=== PATIENT | female | born 1945 | race Caucasian/White ===

== ENCOUNTER 2018-03-26 13:25 | Observation (INO) | payer SELFPAY ==
[~2018-03-26] VITALS: Ht 165.1 cm; Wt 77.0 kg
[2018-03-26 13:51] VITALS: BP 141/103; PULSE 92; RESP 14; TEMP 98.3; O2SAT 96
[2018-03-26] MEDS ORDERED: ZOCO20TA PO (14:09)
[2018-03-26] MEDS ORDERED: LEVO.05 PO (14:09)
[2018-03-26] MEDS ORDERED: LISI10TA3 PO (14:09)
[2018-03-26] MEDS ORDERED: METF1000 PO (14:09)
[2018-03-26] MEDS ORDERED: ASPI-516 PO (14:11)
[2018-03-26] MEDS ORDERED: SODIUM CHLORIDE 0.9% FLUSH 10 ML FLUSH IVF PRN (14:15)
--- NOTE | 2018-03-26 14:38 | RADRPT ---
EXAM DATE: 03/26/2018 2:35 PM EDT AGE/SEX: 73 years / Female INDICATIONS: Chest pain. CLINICAL DATA: This is the patient's initial encounter. Patient reports that signs and symptoms have been present for 4 - 6 days and indicates a pain score of 5/10. MEDICAL/SURGICAL HISTORY: None. None. COMPARISON: No prior Erin exams available for comparison. FINDINGS: A single AP view of the chest demonstrates the lungs to be symmetrically aerated without evidence of mass, infiltrate or effusion. The cardiomediastinal contours are unremarkable. Osseous structures a re intact. CONCLUSION: No acute cardiopulmonary disease. Electronically signed by: Doug Orr MD 03/26/2018 2:36 PM EDT
--- NOTE | 2018-03-26 15:05 | PD ---
HPI Chief Complaint: Chest Pain Time Seen by Provider: 14:06 Travel History International Travel<30 days: No Contact w/Intl Traveler<30days: No Traveled to known affect area: No History of Present Illness HPI The patient was seen and examined in the presence of the nurse. This is a Faroese speaker and translation was used. This patient complains of chest pain. Location is center sternum. Feels like a pressure and aching. Duration 3 days. No alleviating factors. She is currently pain-free. No exacerbating factors. [place] Symptom severity is moderate. PFSH Past Medical History Cardiovascular Problems: Yes High Cholesterol: Yes Diabetes: Yes Patient Takes Glucophage: Yes Diminished Hearing: No Hypertension: Yes Medical other: Yes Thyroid Disease: Yes Tetanus Vaccination: > 5 Years Influenza Vaccination: Yes ?: Not Menopausal: Yes : 4 Para: 4 Past Surgical History Gynecologic Surgery: Yes Hysterectomy: Yes Social History Alcohol Use: No Tobacco Use: No Substance Use: No Allergies-Medications (Allergen,Severity, Reaction): Coded Allergies: No Known Allergies (Unverified , 03/26/18) Reported Meds & Prescriptions Reported Meds & Active Scripts Active Reported Aspirin 81 Mg Chew 81 Mg PO DAILY Synthroid (Levothyroxine Sodium) 50 Mcg Tab 50 Mcg PO DAILY Metformin (Metformin HCl) 1,000 Mg Tab 1,000 Mg PO BIDPC Zocor (Simvastatin) 20 Mg Tab 20 Mg PO DAILY@1600 Lisinopril 10 Mg Tab 10 Mg PO DAILY Review of Systems General / Constitutional: No: Fever Eyes: No: Visual changes HENT: No: Headaches Cardiovascular: Positive: Chest Pain or Discomfort Respiratory: No: Shortness of Breath Gastrointestinal: No: Abdominal Pain Genitourinary: No: Dysuria Musculoskeletal: No: Pain Skin: No Rash Neurologic: No: Weakness Psychiatric: No: Depression Endocrine: No: Polydipsia Hematologic/Lymphatic: No: Easy Bruising Physical Exam Narrative GENERAL: Well-nourished, well-developed patient in no apparent distress. SKIN: Focused skin assessment reveals no rash and nodules. Skin is Warm and dry. HEAD: Atraumatic. Normocephalic. EYES: Pupils equal and round. No scleral icterus. No injection or drainage. ENT: No nasal bleeding or discharge. Mucous membranes pink and moist. NECK: Trachea midline. No JVD. CARDIOVASCULAR: Regular rate and rhythm. No murmur appreciated. Periodic ectopic beats are noted RESPIRATORY: No accessory muscle use. Clear to auscultation. Breath sounds equal bilaterally. GASTROINTESTINAL: Abdomen soft, non-tender, nondistended. Hepatic and splenic margins not palpable. MUSCULOSKELETAL: No obvious deformities. No clubbing. No cyanosis. No edema. NEUROLOGICAL: Awake and alert. No obvious cranial nerve deficits. Motor grossly within normal limits. Normal speech. PSYCHIATRIC: Appropriate mood and affect; insight and judgment normal. Data Data Last Documented VS Vital Signs Date Time Temp Pulse Resp B/P (MAP) Pulse Ox O2 Delivery O2 Flow Rate FiO2 03/26/18 14:21 Room Air 03/26/18 14:12 96 16 98 03/26/18 13:51 98.3 141/103 (116) Orders Orders Electrocardiogram (03/26/18 14:15) Basic Metabolic Panel (Bmp) (03/26/18 14:15) Ckmb (Isoenzyme) Profile (03/26/18 14:15) Complete Blood Count With Diff (03/26/18 14:15) Magnesium (Mg) (03/26/18 14:15) Prothrombin Time / Inr (Pt) (03/26/18 14:15) Act Partial Throm Time (Ptt) (03/26/18 14:15) Troponin I (03/26/18 14:15) Chest, Single Ap (03/26/18 14:15) Ecg Monitoring (03/26/18 14:15) Iv Access Insert/Monitor (03/26/18 14:15) Oximetry (03/26/18 14:15) Sodium Chloride 0.9% Flush (Ns Flush) (03/26/18 14:15) CKMB (03/26/18 14:13) CKMB% (03/26/18 14:13) Labs Laboratory Tests Test 03/26/18 14:13 White Blood Count 7.1 TH/MM3 Red Blood Count 4.11 MIL/MM3 Hemoglobin 12.8 GM/DL Hematocrit 36.0 % Mean Corpuscular Volume 87.6 FL Mean Corpuscular Hemoglobin 31.0 PG Mean Corpuscular Hemoglobin Concent 35.4 % Red Cell Distribution Width 13.1 % Platelet Count 222 TH/MM3 Mean Platelet Volume 10.2 FL Neutrophils (%) (Auto) 44.4 % Lymphocytes (%) (Auto) 47.6 % Monocytes (%) (Auto) 6.4 % Eosinophils (%) (Auto) 1.1 % Basophils (%) (Auto) 0.5 % Neutrophils # (Auto) 3.1 TH/MM3 Lymphocytes # (Auto) 3.4 TH/MM3 Monocytes # (Auto) 0.5 TH/MM3 Eosinophils # (Auto) 0.1 TH/MM3 Basophils # (Auto) 0.0 TH/MM3 CBC Comment DIFF FINAL Differential Comment Prothrombin Time 10.3 SEC Prothromb Time International Ratio 1.0 RATIO Activated Partial Thromboplast Time 25.6 SEC Blood Urea Nitrogen 26 MG/DL Creatinine 0.97 MG/DL Random Glucose 184 MG/DL Calcium Level 9.5 MG/DL Magnesium Level 1.8 MG/DL Sodium Level 139 MEQ/L Potassium Level 3.7 MEQ/L Chloride Level 102 MEQ/L Carbon Dioxide Level 26.4 MEQ/L Anion Gap 11 MEQ/L Estimat Glomerular Filtration Rate 57 ML/MIN Total Creatine Kinase 142 U/L Creatine Kinase MB 1.3 NG/ML Troponin I LESS THAN 0.02 NG/ML MDM Medical Decision Making Medical Screen Exam Complete: Yes Emergency Medical Condition: Yes Medical Record Reviewed: Yes Differential Diagnosis Differential diagnosis includes MN, angina, pericarditis, pleurisy, GERD, anxiety. Narrative Course I have reviewed the patient's electronic medical record. IV placed and labs sent She had aspirin prior to arrival I reviewed her EKG which shows sinus rhythm with occasional ectopic beat and left bundle branch block Cardiac enzymes and CBC and metabolic profiles are normal Chest x-ray is normal Patient remained chest pain-free. She has multiple risk factors for coronary artery disease. [place] but I have no details or records to go by. She will be a 23 hour observation in the chest pain center in order to rule out cardiac cause of her symptoms. Diagnosis Primary Impression: Chest pain Qualified Codes: R07.9 - Chest pain, unspecified Additional Impressions: Hyperlipidemia Qualified Codes: E78.5 - Hyperlipidemia, unspecified Hypertension Qualified Codes: I10 - Essential (primary) hypertension Admitting Information Admitting Physician Requests: Observation Earnest Bhatt MD March 26, 2018 15:05
[2018-03-26 15:09] LABS: AUTOMATED NEUTROPHIL # 3.1 TH/MM3 (1.8-7.7); BASOPHIL % 0.5 % (0.0-2.0); EOSINOPHIL # 0.1 TH/MM3 (0-0.4); EOSINOPHIL % 1.1 % (0.0-4.0); HEMOGLOBIN 12.8 GM/DL (11.6-15.3); LYMPH % 47.6 % (9.0-44.0); LYMPHOCYTE # 3.4 TH/MM3 (1.0-4.8); MEAN CELL VOLUME 87.6 FL (80.0-100.0); MEAN CORPUSCULAR HGB CONC 35.4 % (32.0-36.0); MEAN PLATELET VOLUME 10.2 FL (7.0-11.0); MONO % 6.4 % (0.0-8.0); MONOCYTE # 0.5 TH/MM3 (0-0.9); NEUT % 44.4 % (16.0-70.0); PLATELET COUNT 222 TH/MM3 (150-450); RED BLOOD COUNT 4.11 MIL/MM3 (4.00-5.30); RED CELL DISTRIBUTION WIDTH 13.1 % (11.6-17.2); WHITE BLOOD COUNT 7.1 TH/MM3 (4.0-11.0)
[2018-03-26 15:19] LABS: BICARBONATE 26.4 MEQ/L (21.0-32.0); BLOOD UREA NITROGEN 26 MG/DL (7-18); CALCIUM 9.5 MG/DL (8.5-10.1); CHLORIDE 102 MEQ/L (98-107); CREATININE 0.97 MG/DL (0.50-1.00); GLOMERULAR FILTRATION RATE 57 ML/MIN (>89); GLUCOSE,RANDOM 184 MG/DL (74-106); MAGNESIUM 1.8 MG/DL (1.5-2.5); SODIUM (NA) 139 MEQ/L (136-145)
[2018-03-26 15:24] LABS: TROPONIN I LESS THAN 0.02 NG/ML (0.02-0.05)
[2018-03-26 15:43] LABS: PROTHROMBIN TIME - PATIENT 10.3 SEC (9.8-11.6)
[2018-03-26] MEDS ORDERED: SODIUM CHLORIDE 0.9% FLUSH 10 ML FLUSH IV FLUSH PRN (18:30)
[2018-03-26 18:41] VITALS: BP 130/75; PULSE 100; RESP 20; O2SAT 96
[2018-03-26 19:02] VITALS: BP 130/75
[2018-03-26 19:43] LABS: TROPONIN I LESS THAN 0.02 NG/ML (0.02-0.05)
[2018-03-26 20:46] VITALS: BP 130/81; PULSE 79; RESP 16; TEMP 98.2; O2SAT 96
[2018-03-26] MEDS: SODIUM CHLORIDE 0.9% FLUSH 10 ML FLUSH IV FLUSH SCH (22:03)
[2018-03-26 22:37] LABS: TROPONIN I LESS THAN 0.02 NG/ML (0.02-0.05)
[2018-03-26 23:59] VITALS: BP 156/70; PULSE 69; RESP 16; TEMP 98.2; O2SAT 98
[2018-03-27] VITALS (9 sets, daily range): BP systolic 114–195; BP diastolic 64–80; PULSE 65–93; RESP 16–18; TEMP 97.5–97.9; O2SAT 96–98
[2018-03-27] MEDS ORDERED: ONDANSETRON ODT 4 MG TAB PO PRN (07:30)
[2018-03-27] MEDS ORDERED: NITROGLYCERIN 0.4 MG SL 25 TABS/BTL SL PRN (07:30)
[2018-03-27] MEDS ORDERED: ACETAMINOPHEN 500 MG CPLT PO PRN (07:30)
[2018-03-27] MEDS ORDERED: ASPIRIN 325 MG TAB PO SCH (09:00)
[2018-03-27] MEDS ORDERED: LISINOPRIL 10 MG TAB PO SCH (09:00)
[2018-03-27] MEDS: SODIUM CHLORIDE 0.9% FLUSH 10 ML FLUSH IV FLUSH SCH (09:08)
--- NOTE | 2018-03-27 09:27 | HHI.HP ---
HPI Primary Care Physician No Primary Care Physician Chief Complaint Chest pain History of Present Illness 73-year-old female with history of hypertension, hyperlipidemia, type 2 diabetes presents emergency room for further evaluation of nonexertional chest pain. Onset 11 AM. Location substernal. Characterized as a quick, onset of squeezing. No radiation. Severity /10. Duration 1-2 minutes. No associated symptoms of nausea, vomiting, dyspnea, or diaphoresis. No known precipitating or relieving factors. Denies similar pain in the past. Currently chest pain-free. Use of television news producer service utilized. Review of Systems General: No fatigue, weakness, fever, chills, recent illness, or change in appetite. Has been in her general state of health. Recently moved from [place] 3 months ago to live with son here in [facility]. HEENT: No GUTIERREZ, no vision changes, no nasal congestion or drainage, no dysphasia CV: As stated above. No current chest pain or pressure. History of palpitations, denying palpitations during chest pain episode yesterday. RESP: No SOB, cough, wheeze, or recent upper respiratory infections GI: No nausea, vomiting, bowel changes, diarrhea, constipation, pain, distention , melena, or blood in the stool. : No dysuria, urgency, frequency EXT: No lower leg edema, no paraesthesias MS: No discomfort, injury, or change in ROM NEURO: No change in memory, dizziness, difficulty with balance, LOC, motor/ sensory deficits PSYCH: No anxiety, depression, suicidal ideation SKIN: No rashes, no concerning lesions Past Family Social History Allergies: Coded Allergies: No Known Allergies (Unverified , 03/26/18) Past Medical History Hypertension, hyperlipidemia, hypothyroidism, type 2 diabetes, hard of hearing Past Surgical History Hysterectomy Reported Medications Reported Meds & Active Scripts Active Reported Aspirin 81 Mg Chew 81 Mg PO DAILY Synthroid (Levothyroxine Sodium) 50 Mcg Tab 50 Mcg PO DAILY Metformin (Metformin HCl) 1,000 Mg Tab 1,000 Mg PO BIDPC Zocor (Simvastatin) 20 Mg Tab 20 Mg PO DAILY@1600 Lisinopril 10 Mg Tab 10 Mg PO DAILY Active Ordered Medications Current Medications Medications (Trade) Dose Ordered Sig/Beronica Route Start Time Stop Time Status Last Admin (NS Flush) 2 ml UNSCH PRN IV FLUSH 03/26/18 18:30 (NS Flush) 2 ml BID IV FLUSH 03/26/18 21:00 03/27/18 09:08 (Prinivil) 10 mg DAILY PO 03/27/18 09:00 03/27/18 09:08 (Aspirin) 325 mg DAILY PO 03/27/18 09:00 03/27/18 09:08 (Tylenol) 500 mg Q4H PRN PO 03/27/18 07:30 (Nitrostat Sl) 0.4 mg Q5M PRN SL 03/27/18 07:30 (Zofran Odt) 4 mg Q6H PRN PO 03/27/18 07:30 Family History Non-Contributory for early onset cardiovascular disease Social History Known type 2 diabetes, hypertension, hyperlipidemia. No known coronary artery disease. Lifelong non-smoker. Denies any alcohol or illegal drug use. Endorses sedentary lifestyle. Past cardiac testing Nuclear chemical stress test approximately 6 months ago reported to be normal. Testing was completed due to reported palpitations.. Denies ever requiring cardiac catheterization. Physical Exam Vital Signs Vital Signs Date Time Temp Pulse Resp B/P (MAP) Pulse Ox O2 Delivery O2 Flow Rate FiO2 03/27/18 09:04 97.8 71 18 146/72 (96) 97 03/27/18 08:06 77 03/27/18 03:56 97.7 65 16 114/69 (84) 96 03/27/18 03:00 79 03/27/18 00:38 21 03/27/18 00:05 77 03/26/18 23:59 98.2 69 16 156/70 (98) 98 03/26/18 20:46 98.2 79 16 130/81 (97) 96 03/26/18 19:02 100 20 130/75 (93) 98 21 03/26/18 18:41 100 20 130/75 (93) 96 Room Air 03/26/18 14:21 Room Air 03/26/18 14:12 96 16 98 Room Air 03/26/18 13:51 98.3 92 14 141/103 (116) 96 Physical Exam GENERAL: Alert WN, WD, NAD, pleasant, elderly female HEAD: NC, AT EYES: Sclera clear, conjunctiva without injection, pupils equal and round ENT: Mucous membranes pink and moist, no nasal discharge or bleeding NECK: Supple, no masses, trachea midline CV: RRR, 1/6 systolic murmur, no rub, gallop, or JVD, S1-S2 no S3-S4. No carotid or femoral bruits. Left anterior chest discomfort reproduced with palpation. RESP: Clear lungs throughout bilateral, no crackles, wheeze, rhonchi, symmetrical chest rise, nonlabored, able to speak in full sentences ABD: Soft, NT, ND, no masses, positive bowel tones EXT: Pulses +2x4, no dependent edema MS: Normal tone x4 extremities, nontender, no obvious deformities, full range of motion NEURO: CN II through CN XII grossly intact, motor strength 5/5 PSYCH: A+O x3, Estonian-speaking, pleasant affect, appropriate speech, mood and affect, insight and judgment SKIN: Normal turgor, normal texture, no lesions, no rashes, brisk cap refill, even hair distribution Laboratory Laboratory Tests Test 03/26/18 14:13 03/26/18 18:30 03/26/18 21:53 White Blood Count 7.1 Red Blood Count 4.11 Hemoglobin 12.8 Hematocrit 36.0 Mean Corpuscular Volume 87.6 Mean Corpuscular Hemoglobin 31.0 Mean Corpuscular Hemoglobin Concent 35.4 Red Cell Distribution Width 13.1 Platelet Count 222 Mean Platelet Volume 10.2 Neutrophils (%) (Auto) 44.4 Lymphocytes (%) (Auto) 47.6 Monocytes (%) (Auto) 6.4 Eosinophils (%) (Auto) 1.1 Basophils (%) (Auto) 0.5 Neutrophils # (Auto) 3.1 Lymphocytes # (Auto) 3.4 Monocytes # (Auto) 0.5 Eosinophils # (Auto) 0.1 Basophils # (Auto) 0.0 CBC Comment DIFF FINAL Differential Comment Prothrombin Time 10.3 Prothromb Time International Ratio 1.0 Activated Partial Thromboplast Time 25.6 Blood Urea Nitrogen 26 Creatinine 0.97 Random Glucose 184 Calcium Level 9.5 Magnesium Level 1.8 Sodium Level 139 Potassium Level 3.7 Chloride Level 102 Carbon Dioxide Level 26.4 Anion Gap 11 Estimat Glomerular Filtration Rate 57 Total Creatine Kinase 142 129 121 Creatine Kinase MB 1.3 1.2 1.2 Troponin I LESS THAN 0.02 LESS THAN 0.02 LESS THAN 0.02 Result Diagram: 03/26/18 1413 03/26/18 1413 Imaging Last 48 hours Impressions Chest X-Ray 03/26/18 1415 Signed Impressions: CONCLUSION: No acute cardiopulmonary disease. Course EKG NSR, Left bundle branch block Caprini VTE Risk Assessment Caprini VTE Risk Assessment: Mod/High Risk (score >= 2) Caprini Risk Assessment Model Point Value = 1 Point Value = 2 Point Value = 3 Point Value = 5 Age 41-60 Minor surgery BMI > 25 kg/m2 Swollen legs Varicose veins or History of unexplained or recurrent spontaneous Oral contraceptives or hormone replacement Sepsis (< 1 month) Serious lung disease, including pneumonia (< 1 month) Abnormal pulmonary function Acute myocardial infarction Congestive heart failure (< 1 month) History of inflammatory bowel disease Medical patient at bed rest Age 61-74 Arthroscopic surgery Major open surgery (> 45 min) Laparoscopic surgery (> 45 min) Malignancy Confined to bed (> 72 hours) Immobilizing plaster cast Central venous access Age >= 75 History of VTE Family history of VTE Factor V Leiden Prothrombin [id number] Lupus anticoagulant Anticardiolipin antibodies Elevated serum homocysteine Heparin-induced thrombocytopenia Other congenital or acquired thrombophilia Stroke (< 1 month) Elective arthroplasty Hip, pelvis, or leg fracture Acute spinal cord injury (< 1 month) Prophylaxis Regimen Total Risk Factor Score Risk Level Prophylaxis Regimen 0-1 Low Early ambulation 2 Moderate Order ONE of the following: *Sequential Compression Device (SCD) *Heparin 5000 units SQ BID 3-4 Higher Order ONE of the following medications: *Heparin 5000 units SQ TID *Enoxaparin/Lovenox 40 mg SQ daily (WT < 150 kg, CrCl > 30 mL/min) *Enoxaparin/Lovenox 30 mg SQ daily (WT < 150 kg, CrCl > 10-29 mL/min) *Enoxaparin/Lovenox 30 mg SQ BID (WT < 150 kg, CrCl > 30 mL/min) AND/OR *Sequential Compression Device (SCD) 5 or more Highest Order ONE of the following medications: *Heparin 5000 units SQ TID (Preferred with Epidurals) *Enoxaparin/Lovenox 40 mg SQ daily (WT < 150 kg, CrCl > 30 mL/min) *Enoxaparin/Lovenox 30 mg SQ daily (WT < 150 kg, CrCl > 10-29 mL/min) *Enoxaparin/Lovenox 30 mg SQ BID (WT < 150 kg, CrCl > 30 mL/min) AND *Sequential Compression Device (SCD) Assessment and Plan Assessment and Plan #1 Atypical chest pain-admitted to chest pain center. Ruled out 3 sets of EKGs , cardiac enzymes, and monitored on telemetry overnight. Will be seen and evaluated by Dr. Obdulio Ross. Attempt to obtain Lexisca record from [place]. Discussed likelihood of repeating Lexiscan. EKG left bundle branch block with no comparison EKG. Patient and patient's son at bedside agreeable to plan of care and made aware final disposition will be made after valuation by stress test technician. #2 History of hypertension-continue lisinopril #3 History of hyperlipidemia-continue simvastatin #4 History of type II diabetes-hold metformin at this time, resume after n.p.o. status lifted Richa Castro Mar 27, 2018 09:27
--- NOTE | 2018-03-27 13:18 | EKG ---
Date Performed: 03/26/2018 Time Performed: 22:00:01 PTAGE: 73 years EKG: Sinus rhythm WITH OCCASIONAL SUPRAVENTRICULAR PREMATURE COMPLEXES MARKED LEFT AXIS DEVIATION LEFT BUNDLE BRANCH B LOCK ABNORMAL ECG PREVIOUS TRACING : 03/26/2018 18.29 Since previous tracing, no significant change noted DOCTOR: Obdulio Ross Interpretating Date/Time 03/27/2018 13:18:20
--- NOTE | 2018-03-27 13:21 | EKG ---
Date Performed: 03/26/2018 Time Performed: 18:29:06 PTAGE: 73 years EKG: Sinus rhythm WITH OCCASIONAL SUPRAVENTRICULAR PREMATURE COMPLEXES MARKED LEFT AXIS DEVIATION LEFT BUNDLE BRANCH B LOCK ABNORMAL ECG PREVIOUS TRACING : 03/26/2018 14.17 Since previous tracing, no significant change noted DOCTOR: Obdulio Ross Interpretating Date/Time 03/27/2018 13:19:23
--- NOTE | 2018-03-27 13:22 | EKG ---
Date Performed: 03/26/2018 Time Performed: 14:17:42 PTAGE: 73 years EKG: Sinus rhythm WITH OCCASIONAL SUPRAVENTRICULAR PREMATURE COMPLEXES MARKED LEFT AXIS DEVIATION LEFT BUNDLE BRANCH B LOCK ABNORMAL ECG NO PREVIOUS TRACING DOCTOR: Obdulio Ross Interpretating Date/Time 03/27/2018 13:19:54
[2018-03-27] MEDS ORDERED: REGADENOSON INJ 0.4 MG/5 ML SYR ONE (13:33)
--- NOTE | 2018-03-27 14:54 | RADRPT ---
EXAM DATE: 03/27/2018 2:34 PM EDT AGE/SEX: 73 years / Female INDICATIONS:Angina. . Chest pain. CLINICAL DATA: This is the patient's initial encounter. Patient reports that signs and symptoms have been present for 1 day and indicates a pain score of 0/10. MEDICAL/SURGICAL HISTORY: Diabetes mellitus type II. Hypercholesterolemia. Hypertension. Hyst erectomy. COMPARISON: No prior [facility] exams available for comparison. No external comparison. DOSE: 8.5 mCi Tc 99m Myoview at rest 26.2 mCi [id number] at stress 0.4 mg Lexiscan STRESS SYMPTOMS: Dyspnea. EJECTION FRACTION: 48 % TECHNIQUE: The patient underwent pharmacologic stress with infusion of prescribed dose. Continuous ECG tracing was monitored during stress. Gated SPECT imaging was performed after stress and conventi onal SPECT imaging was performed at rest. The examination was performed on a SPECT/CT scanner, both attenuation and non-corrected datasets were reviewed. FINDINGS: Distribution: The maximum perfused segment at stress is in the anterolateral wall. Perfusion Study: The examination demonstrates a mild in severity, fixed perfusion defect involving the anteroseptal wall down near the cardiac apex. No reversible perfusion defect is identified. There is no associated wall motion abnormality in this area. This could suggest an old area of infarct. Gated Study: There is a hypokinetic wall motion segment in the anteroseptal wall. The ejection frac tion is calculated at 48%. RISK CATEGORY: Intermediate (1-3 % Annual Mortality Rate) CONCLUSION: 1. Fixed perfusion defect in the anteroseptal wall with associated wall motion abnormality suggestin g an old area of infarct. 2. The ejection fraction is mildly decreased at 48%. Electronically signed by: Roddy Del Toro MD 03/27/2018 2:53 PM EDT
--- NOTE | 2018-03-27 15:04 | HHI.DCPOC ---
Discharge Care Plan Diagnosis: (1) Atypical chest pain Goals to Promote Your Health * To prevent worsening of your condition and complications * To maintain your health at the optimal level Directions to Meet Your Goals Take your medications as prescribed Follow your dietary instruction Follow activity as directed Keep your appointments as scheduled Take your immunizations and boosters as scheduled If your symptoms worsen call your PCP, if no PCP go to Urgent Care Center or Emergency Room Smoking is Dangerous to Your Health. Avoid second hand smoke Call the 24-hour hour crisis hotline for domestic abuse at Richa Castro Mar 27, 2018 15:04
--- NOTE | 2018-03-28 11:13 | TR ---
Date Performed: 03/27/2018 Time Performed: 13:32:24 DOCTOR: Obdulio Ross DRUG LIST: CLINICAL HISTORY: REASON FOR TEST: REASON FOR ENDING: OBSERVATION: CONCLUSION: COMMENTS: Lexiscan stress test was performed under standard four minute protocol. Radionuclide was injected one minute prior to ending the test. No electrocardiographic abormalities were present t o suggest ischemia. Nuclear imaging and interpretation are pending.
== END 2018-03-27 17:03 | disposition home or self-care (01) ==
LOC: NEPE 13:25 → NEDA 18:17 → NEPFCDU 19:56
DX: R07.89 Other chest pain (principal); I10 Essential (primary) hypertension; E78.5 Hyperlipidemia, unspecified; E03.9 Hypothyroidism, unspecified; E11.9 Type 2 diabetes mellitus without complications; I44.7 Left bundle-branch block, unspecified; Z79.899 Other long term (current) drug therapy; Z79.82 Long term (current) use of aspirin
CPT/HCPCS: 71045; 78452; 80048; 82550; 82552; 83735; 84484; 85025; 85610; 85730; 93005; 93017; 99285; A9502; G0378; J2785

== ENCOUNTER 2018-03-30 10:29 | Emergency (ER) | payer SELFPAY ==
[~2018-03-30 10:29] MED LIST: ASPI-516 PO; LEVO.05 PO; LISI10TA3 PO; METF1000 PO; ZOCO20TA PO
[2018-03-30 11:04] VITALS: BP 131/68; PULSE 85; RESP 16; TEMP 98.7; O2SAT 98
[2018-03-30] MEDS ORDERED: LISI10TA3 PO (11:52)
[2018-03-30] MEDS ORDERED: METF1000 PO (11:52)
[2018-03-30] MEDS ORDERED: SIMV20TA PO (11:52)
[2018-03-30] MEDS ORDERED: LEVO50TA4 PO (11:52)
--- NOTE | 2018-03-30 11:56 | PD ---
HPI Chief Complaint: Medication Refill Request Time Seen by Provider: 11:31 Travel History International Travel<30 days: No Contact w/Intl Traveler<30days: No Traveled to known affect area: No History of Present Illness HPI 73-year-old female presents to the emergency room requesting medication refill. Patient states she has been out of her medications for 4 days, since she got discharged from the chest pain center at [place]. She needs refills of lisinopril, simvastatin, metformin, and levothyroxine. States she moved down here from [place] 2 months ago and does not have a primary care physician in the area. She denies any complaints today other than anxiety about having her medications refilled. Patient is primarily Khmer-speaking and high school history teacher was used throughout history and physical exam. [facility] Past Medical History Cardiovascular Problems: Yes High Cholesterol: Yes Diabetes: Yes Diminished Hearing: No Hypertension: Yes Thyroid Disease: Yes Menopausal: Yes : 4 Para: 4 Past Surgical History Gynecologic Surgery: Yes Hysterectomy: Yes Social History Alcohol Use: No Tobacco Use: No Substance Use: No Allergies-Medications (Allergen,Severity, Reaction): Coded Allergies: No Known Allergies (Unverified , 03/26/18) Reported Meds & Prescriptions Reported Meds & Active Scripts Active Lisinopril 10 Mg Tab 10 Mg PO DAILY Levothyroxine (Levothyroxine Sodium) 50 Mcg Tab 50 Mcg PO DAILY Metformin (Metformin HCl) 1,000 Mg Tab 1,000 Mg PO BIDPC Simvastatin 20 Mg Tab 20 Mg PO DAILY Reported Aspirin 81 Mg Chew 81 Mg PO DAILY Synthroid (Levothyroxine Sodium) 50 Mcg Tab 50 Mcg PO DAILY Metformin (Metformin HCl) 1,000 Mg Tab 1,000 Mg PO BIDPC Zocor (Simvastatin) 20 Mg Tab 20 Mg PO DAILY@1600 Lisinopril 10 Mg Tab 10 Mg PO DAILY Review of Systems Except as stated in HPI: all other systems reviewed are Neg Physical Exam Narrative GENERAL: Well-nourished, well-developed female no acute distress. Afebrile. Ambulatory. SKIN: Focused skin assessment warm/dry. HEAD: Normocephalic. EYES: No scleral icterus. No injection or drainage. NECK: Supple, trachea midline. No JVD or lymphadenopathy. CARDIOVASCULAR: Regular rate and rhythm without murmurs, gallops, or rubs. RESPIRATORY: Breath sounds equal bilaterally. No accessory muscle use. PSYCHIATRIC: No delusional thought processes. No hallucinations. Anxious. Data Data Last Documented VS Vital Signs Date Time Temp Pulse Resp B/P (MAP) Pulse Ox O2 Delivery O2 Flow Rate FiO2 03/30/18 11:04 98.7 85 16 131/68 (89) 98 Orders Orders Ed Discharge Order (03/30/18 11:56) MDM Medical Decision Making Medical Screen Exam Complete: Yes Emergency Medical Condition: Yes Medical Record Reviewed: Yes Differential Diagnosis Medication refill, normal examination, hypertension Narrative Course 73-year-old female presents to the emergency room for evaluation of medication refill. She is primary Khmer-speaking and high school history teacher was used throughout history and physical exam. States she has been out of her medications for 4 days. Patient appears very anxious about having her medications refilled and is tearful. She does not have a primary care physician in the area because she just moved here 2 months ago. She was educated extensively on the importance of follow-up and how she needs to establish a primary care physician as soon as possible to monitor her medications. She will be given a one-month supply to give her time to follow-up with primary care physician. She understands and agrees to plan. Diagnosis Primary Impression: Medication refill Referrals: Primary Care Physician Additional Instructions: Take medications as directed. Follow-up with a primary care physician. Call your insurance company to find a doctor in the area to see. Return to the emergency room for worsening symptoms. Med/Other Pt SpecificInfo: Prescription(s) given Scripts Lisinopril (Lisinopril) 10 Mg Tab 10 MG PO DAILY, #30 TAB 0 Refills Prov: Dayna Kelly MD 03/30/18 Levothyroxine (Levothyroxine) 50 Mcg Tab 50 MCG PO DAILY for Thyroid, #30 TAB 0 Refills Prov: Dayna Kelly MD 03/30/18 Metformin (Metformin) 1,000 Mg Tab 1000 MG PO BIDPC for Blood Sugar Management, #60 TAB 0 Refills Prov: Dayna Kelly MD 03/30/18 Simvastatin (Simvastatin) 20 Mg Tab 20 MG PO DAILY for Cholesterol Management, #30 TAB 0 Refills Prov: Dayna Kelly MD 03/30/18 Disposition: 01 DISCHARGE HOME Condition: Stable Yana Vo Mar 30, 2018 11:56
== END 2018-03-30 12:12 | disposition home or self-care (01) ==
LOC: NEPK 10:29
DX: E11.9 Type 2 diabetes mellitus without complications (principal); E78.00 Pure hypercholesterolemia, unspecified; I10 Essential (primary) hypertension; Z76.0 Encounter for issue of repeat prescription; Z79.84 Long term (current) use of oral hypoglycemic drugs
CPT/HCPCS: 99283